=== PATIENT | male | born 1995 | race Two or more races ===

== ENCOUNTER 2016-11-17 22:18 | Emergency (ER) | payer BC, OTHER ==
[~2016-11-17] VITALS: Ht 172.7 cm; Wt 79.0 kg
[~2016-11-17 22:18] MED LIST: ALBU2.5V11 HOMEINH; ALBU8.5H5 HOMEINH
[2016-11-17 22:20] VITALS: BP 139/79
[2016-11-17] MEDS ORDERED: DIPH,PERTUSS(ACELL),TET VAC/PF 0.5 ML IM-VACC ONE ×2 (22:52→23:00)
[2016-11-17] MEDS ORDERED: LIDOCAINE 1%, 20ML ONE (22:52)
[2016-11-17] MEDS ORDERED: LIDOCAINE 1%, 20ML SQ ONE (23:00)
[2016-11-17] MEDS ORDERED: BACITRACIN ZINC OINT 500U/GM, 0.9 GM ONE (23:17)
== END 2016-11-17 23:47 | disposition home or self-care (01) ==
LOC: ED 23:41
DX: S71.111A Laceration without foreign body, right thigh, initial encounter (principal); W26.0XXA Contact with knife, initial encounter; Y93.89 Activity, other specified; Y92.89 Other specified places as the place of occurrence of the external cause; Y99.8 Other external cause status
CPT/HCPCS: 12002; 90471; 90715

== ENCOUNTER → 2017-01-11 | Outpatient (CLI) | payer BC | END | disposition home or self-care (01) | LOC: CFH 11:48 | PROVIDERS: ATTEND Registered Nurse | DX: N62 Hypertrophy of breast (principal); N64.4 Mastodynia ==

== ENCOUNTER 2019-11-23 21:51 | Inpatient (IN) | payer BC, OTHER ==
[~2019-11-23] VITALS: Ht 174 cm; Wt 79.7 kg
[2019-11-23] MEDS ORDERED: PANTOPRAZOLE 80 MG in SODIUM CHLORIDE 0.9% 100 ML IV SCH (22:22)
[2019-11-23] MEDS ORDERED: PANTOPRAZOLE 80 MG in SODIUM CHLORIDE 0.9% 50 ML IVPB ONE (22:22)
[2019-11-23] MEDS ORDERED: SODIUM CHLORIDE FLUSH 10ML SYR IVF ONE (22:30)
[2019-11-23 22:59] LABS: BASOPHILS # (AUTO) 0.05 x10^3/uL (0-0.1); BASOPHILS % (AUTO) 1 % (0-1); EOSINOPHILS # (AUTO) 0.09 x10^3/uL (0-0.4); EOSINOPHILS % (AUTO) 1 % (1-7); LYMPHOCYTES # (AUTO) 2.94 x10^3/uL (1-3.4); LYMPHOCYTES % (AUTO) 31 % (22-44); MD NO; MEAN CORPUSCULAR HEMOGLOBIN 30.8 pg (27.5-34.5); MEAN CORPUSCULAR HGB CONC 33.7 g/dL (33.2-36.2); MEAN CORPUSCULAR VOLUME 91.4 fL (81-97); MEAN PLATELET VOLUME 8.2 fL (7.4-10.4); MONOCYTES # (AUTO) 0.75 x10^3/uL (0.2-0.8); MONOCYTES % (AUTO) 8 % (2-9); NEUTROPHILS % (AUTO) 59 % (42-75); PLATELET COUNT 323 x10^3/uL (130-400); RED CELL DISTRIBUTION WIDTH 12.5 % (9.4-14.8)
[2019-11-23 23:08] LABS: ALBUMIN 3.6 g/dL (3.4-5.0); ANION GAP 4 mmol/L (5-15); CALCIUM 7.7 mg/dL (8.5-10.1); CHLORIDE 108 mmol/L (98-107); CREATININE 1.07 mg/dL (0.7-1.3); INTERNATIONAL NORMALIZED RATIO 1.07 (0.93-1.1); PROTHROMBIN TIME 11.3 Seconds (9.6-11.5)
[2019-11-24] MEDS ORDERED: OMEP-110 PO (00:56)
--- NOTE | 2019-11-24 01:11 | NUR ---
REPORT CALLED TO MARIAELENA BETTENCOURT. PT UPDATED ON PLAN OF CARE. IV FLUIDS CONTINUE INFUSING. PT DENIES ANY NEEDS OR CONCERNS AT THIS TIME, CALL LIGHT IN REACH.
[2019-11-24 01:33] VITALS: BP_SYST 122; BP_DIAS 72; BP_DIAS 76
[2019-11-24] MEDS ORDERED: ONDANSETRON 2MG/ML, 2ML IVPush PRN (02:30)
[2019-11-24] MEDS ORDERED: OXYcodone IR 5MG TABLET PO PRN (02:30)
[2019-11-24] MEDS ORDERED: ACETAMINOPHEN 325 MG TABLET PO PRN (02:30)
[2019-11-24] MEDS ORDERED: DOCUSATE 100 MG CAPSULE PO PRN (02:30)
[2019-11-24] MEDS ORDERED: PROMETHAZINE 25 MG/ML, 1ML IM PRN (02:30)
[2019-11-24] MEDS ORDERED: ONDANSETRON ODT 4 MG PO PRN (02:30)
[2019-11-24] MEDS: SODIUM CHLORIDE 0.9% 1,000 ML IV SCH ×3 (03:03→20:10)
[2019-11-24] MEDS ORDERED: MORPHINE SULFATE 4 MG/ML, 1ML ONE (03:23)
[2019-11-24] MEDS: morphine SULFATE 10 MG/ML, 1ML IVPush PRN ×3 (03:25→16:07)
[2019-11-24] MEDS ORDERED: ALBUTEROL SULFATE 2.5 MG/3 ML NPPB PRN (04:30)
[2019-11-24 08:02] VITALS: BP 103/62
[2019-11-24] MEDS: PANTOPRAZOLE 80 MG in SODIUM CHLORIDE 0.9% 100 ML IV SCH ×2 (08:14→22:28)
[2019-11-24 08:47] LABS: ANION GAP 6 mmol/L (5-15); CALCIUM 7.8 mg/dL (8.5-10.1); CHLORIDE 112 mmol/L (98-107); CREATININE 0.91 mg/dL (0.7-1.3)
[2019-11-24] MEDS ORDERED: CHLORHEXIDINE 15 ML UDC ONE (14:08)
[2019-11-24] MEDS ORDERED: PROPOFOL 10 MG/ML, 20ML ONE (14:39)
[2019-11-24] MEDS ORDERED: MIDAZOLAM 1 MG/ML, 2ML ONE (14:40)
[2019-11-24] MEDS ORDERED: EPINEPHRINE SYRINGE 0.1 MG/ML, 10ML ONE (15:03)
[2019-11-24 19:07] VITALS: BP 97/66
[2019-11-24] MEDS ORDERED: PANTOPRAZOLE 80 MG in SODIUM CHLORIDE 0.9% 100 ML IV SCH (22:22)
[2019-11-25 00:49] VITALS: BP 97/59
[2019-11-25] MEDS: SODIUM CHLORIDE 0.9% 1,000 ML IV SCH (04:56)
[2019-11-25 05:37] LABS: ALBUMIN 2.8 g/dL (3.4-5.0); ANION GAP 5 mmol/L (5-15); CALCIUM 7.6 mg/dL (8.5-10.1); CHLORIDE 111 mmol/L (98-107)
[2019-11-25 05:51] LABS: ALANINE AMINOTRANSFERASE 16 U/L (12-78); ALKALINE PHOSPHATASE 66 U/L (45-117); BILIRUBIN,TOTAL 0.6 mg/dL (0.2-1.0); CHOL/HDL RATIO 3.7; CHOLESTEROL, TOTAL 101 mg/dL (140-239); CREATININE 0.99 mg/dL (0.7-1.3); HDL CHOL % 27 % (26-37); HDL CHOLESTEROL (DIRECT) 27 mg/dL (40-60); LDL CHOLESTEROL,CALCULATED 44 mg/dL (54-169); LDL/HDL RATIO 1.6 (0.5-3.0); TOTAL PROTEIN 5.3 g/dL (6.4-8.2); TRIGLYCERIDES 150 mg/dL (50-200); VLDL CHOLESTEROL 30 mg/dL (0-25)
[2019-11-25] MEDS ORDERED: PANTOPRAZOLE 40 MG IV IVPush SCH (07:00)
[2019-11-25 07:23] VITALS: BP 90/40
[2019-11-25] MEDS ORDERED: PANT40TA5 PO (11:52)
[2019-11-25 12:24] VITALS: BP 105/63
== END 2019-11-25 12:45 | disposition home or self-care (01) | DRG 379 ==
LOC: ED 11-24 00:36 → EDIP 11-24 02:03 → 3N 11-24 02:05 → DCLOUNGE 11-25 12:37
PROVIDERS: ADMIT Internal Medicine; ATTEND Hospitalist
PROC: 0DB78ZX Excision of Stomach, Pylorus, Via Natural or Artificial Opening Endoscopic, Diagnostic (ICD-10-PCS; principal; 2019-11-24 15:15)
DX: K26.4 Chronic or unspecified duodenal ulcer with hemorrhage (principal); J45.909 Unspecified asthma, uncomplicated; K21.9 Gastro-esophageal reflux disease without esophagitis; N62 Hypertrophy of breast; Z90.89 Acquired absence of other organs; Z88.1 Allergy status to other antibiotic agents; Z88.8 Allergy status to other drugs, medicaments and biological substances
CPT/HCPCS: 36415; 80048; 80053; 80061; 82040; 83735; 84443; 85014; 85018; 85025; 85610; 85730; 86850; 86900; 87635; 88305; G0378; J2250; J2704; C9113; J2270; J7030